=== PATIENT | female | born 1950 | race Caucasian/White ===

== ENCOUNTER 2022-12-23 14:20 | Emergency (ER) | payer MEDICARE ==
[~2022-12-23] VITALS: Ht 167.6 cm; Wt 97.8 kg
[2022-12-23 14:27] VITALS: BP 137/59; PULSE 45; RESP 16; TEMP 97.8; O2SAT 96
[2022-12-23] MEDS ORDERED: HYDR-3965 PO (15:23)
== END 2022-12-23 16:44 | disposition home or self-care (01) ==
LOC: ER 14:20
DX: S83.91XA Sprain of unspecified site of right knee, initial encounter (principal); E11.9 Type 2 diabetes mellitus without complications; Z88.0 Allergy status to penicillin; Z79.899 Other long term (current) drug therapy; X58.XXXA Exposure to other specified factors, initial encounter; Y93.89 Activity, other specified; Y92.89 Other specified places as the place of occurrence of the external cause; Y99.8 Other external cause status
CPT/HCPCS: 99283

== ENCOUNTER 2023-02-09 11:35 | Emergency (ER) | payer MEDICARE ==
[~2023-02-09] VITALS: Ht 167.6 cm; Wt 95.0 kg
[2023-02-09] MEDS ORDERED: INSU200I SQ (13:45)
[2023-02-09 13:53] VITALS: BP 131/82; PULSE 70; RESP 18; TEMP 98.2; O2SAT 98
== END 2023-02-09 14:04 | disposition home or self-care (01) ==
LOC: ER 11:35
DX: E11.9 Type 2 diabetes mellitus without complications (principal); Z76.0 Encounter for issue of repeat prescription; Z88.0 Allergy status to penicillin
CPT/HCPCS: 99281